=== PATIENT | male | born 1960 | race Caucasian/White ===

== ENCOUNTER 2023-11-16 08:27 | Day surgery (SDC) | payer OTHER ==
[2023-11-16] VITALS (13 sets, daily range): BP systolic 100–142; BP diastolic 56–88
[~2023-11-16] VITALS: Ht 177.8 cm; Wt 98.9 kg
[~2023-11-16 08:27] MED LIST: ALBU90OI INH; ALLO100 PO; ANORO ELLIPTA1 EACH INH; Amlodipine Besy10 MG PO; BENZ100A PO; CEPH500 PO; CLOT10; DIGOX125 MC1 PO; DILT120 PO; FERROUS GLUCON324 M4 PO; FLUT.05NI; FORM12IH INH; FURO40 PO; HYDACE5 PO; HYDCHL12.5; HYDCHL25 PO; IBUP800 PO; INDO50 PO; INDO75CR; INDO75CR PO; IRBE150 PO; LISHYD2025 PO; Lisinopril2.5 MG PO; METO25 PO; NAPR220 PO; OMEP20ER PO; OTC COLD MEDS; POTCHL20ER PO; ROSU5 PO; SPIR25 PO; SULTRIDS PO; SYMBICORT 160-4.6 GM INH; TAMS.4ER PO; TORSE20 PO; Triamcinolone A15 G3 TOP; XARELTO2.5 MG; XARELTO20 MG PO
[2023-11-16 09:21] LABS: BASOPHILS ABSOLUTE AUTO 0.05 K/mm3 (0.00-0.23); BASOPHILS PERCENT AUTO 1 % (0-2); EOSINOPHILS ABSOLUTE AUTO 0.43 K/mm3 (0.00-0.68); EOSINOPHILS PERCENT AUTO 7 % (0-6); Hematocrit 39.1 % (37.0-53.0); IMMATURE GRAN ABSOLUTE AUTO 0.02 K/mm3 (0.00-0.10); IMMATURE GRAN PERCENT AUTO 0 % (0-1); LYMPHOCYTES ABSOLUTE AUTO 2.21 K/mm3 (0.84-5.20); LYMPHOCYTES PERCENT AUTO 35 % (21-46); MONOCYTES ABSOLUTE AUTO 0.47 K/mm3 (0.16-1.47); MONOCYTES PERCENT AUTO 8 % (4-13); Mean Corpuscular HGB 32.3 pg (26.0-34.0); Mean Corpuscular HGB Conc 33.2 g/dL (31.5-36.5); Mean Corpuscular Volume 97 fL (80-100); Mean Platelet Volume 9.8 fL (9.1-12.4); NEUTROPHILS ABSOLUTE AUTO 3.08 K/mm3 (1.96-9.15); NEUTROPHILS PERCENT AUTO 49 % (41-73); Platelet Count 181 K/mm3 (150-400); RDW Coefficient Variation 13.5 % (11.7-14.2); RDW Standard Deviation 47.9 fL (35.1-46.3); Red Blood Cell Count 4.03 M/mm3 (4.30-5.90); White Blood Cell Count 6.26 K/mm3 (4.00-11.30)
[2023-11-16 09:30] LABS: International Normalized Ratio 0.98; Prothrombin Time Results 10.3 Sec (9.7-11.5)
[2023-11-16 09:41] LABS: Bun/Creatinine Ratio 24.1 (12.0-20.0); Calcium, Blood 9.4 mg/dL (8.5-10.1); Creatinine, Blood 1.58 mg/dL (0.60-1.20); Potassium, Blood 4.4 mmol/L (3.5-5.5)
--- NOTE | 2023-11-16 11:35 | NUR ---
ASSUMED CARE OF PT POST PROCEDURE. PT AWAKE AND CONVERSING APPROPRIATELY; DENIES CHEST PAIN POST PROCEDURE. MONITOR AFIB 60'S, B/P 121/85, SPO2 98% RA, AFEBRILE. R RADIAL SITE NO SWELLING/HEMATOMA, TR BAND IN PLACE; RUE POSITIVE PLEUTH POST TR BAND PLACEMENT.
--- NOTE | 2023-11-16 12:23 | NUR ---
RIGHT RAD TR BAND SITE SOFT NO HEMATOMA,NO PULSATILE BLEEDING AND WRIST BOARD IN PLACE. PT EATING LUNCH WITH FRIEND IN ROOM AND CALL LIGHT IN REACH.
--- NOTE | 2023-11-16 12:26 | NUR ---
DR FORD IN ROOM TO SEE PT.
[2023-11-16] MEDS ORDERED: CLOP75 PO (14:37)
--- NOTE | 2023-11-16 14:43 | NUR ---
TR BAND FULLY DEFLATED, NO SWELLING/HEMATOMA.
--- NOTE | 2023-11-16 15:15 | NUR ---
SITE UNCHANGED AFTER TR BAND DEFLATED.
--- NOTE | 2023-11-16 15:40 | NUR ---
PT DRESSED SELF WITHOUT ASSISTANCE. TR BAND REMOVED, CLOTH DOT AND WRIST IMMOBILIZER PLACED; IV REMOVED-CANNULA INTACT.
--- NOTE | 2023-11-16 15:50 | NUR ---
PT AND FRIEND RECEIVED DISCHARGE INSTRUCTIONS, MED LIST AND AFTER CARE INSTRUCTIONS; VERBALIZED GOOD UNDERSTANDING. PT LEFT FACILITY VIA W/C, CONDITION STABLE.
== END 2023-11-16 15:50 | disposition home or self-care (01) ==
LOC: MHTC 08:27
PROVIDERS: Internal Medicine Interventional Cardiology
DX: I25.118 Atherosclerotic heart disease of native coronary artery with other forms of angina pectoris (principal); I42.0 Dilated cardiomyopathy; Z79.899 Other long term (current) drug therapy
CPT/HCPCS: 76937; 80048; 85025; 85347; 85610; 93454; 99152; 99153; A9270; C1769; C1887; C1894; J1644; J2250; J3010; J3246; J7030; J7050; Q9967

== ENCOUNTER 2024-03-15 16:41 | Emergency (ER) | payer OTHER ==
[~2024-03-15] VITALS: Ht 177.8 cm; Wt 108.9 kg
[~2024-03-15 16:41] MED LIST changes: +CLOP75 PO
[2024-03-15 17:44] VITALS: BP 147/115
[2024-03-15] MEDS ORDERED: Triamcinolone A15 GM TOP (18:47)
[2024-03-15] MEDS ORDERED: ALLEGRA ALLERG180 MG PO (18:47)
== END 2024-03-15 19:09 | disposition home or self-care (01) ==
LOC: ER 16:41
DX: L20.9 Atopic dermatitis, unspecified (principal); L23.9 Allergic contact dermatitis, unspecified cause; I13.0 Hypertensive heart and chronic kidney disease with heart failure and stage 1 through stage 4 chronic kidney disease, or unspecified chronic kidney disease; N18.30 Chronic kidney disease, stage 3 unspecified; I50.9 Heart failure, unspecified; K21.9 Gastro-esophageal reflux disease without esophagitis; J44.9 Chronic obstructive pulmonary disease, unspecified; E78.5 Hyperlipidemia, unspecified; Z79.899 Other long term (current) drug therapy
CPT/HCPCS: 99283